=== PATIENT | female | born 1985 | race Two or more races ===

== ENCOUNTER 2019-05-04 13:59 | Emergency (ER) | payer SELFPAY ==
[~2019-05-04] VITALS: Ht 152.4 cm; Wt 63.5 kg
[2019-05-04 14:02] VITALS: Ht 152.4 cm; Wt 63.5 kg
[2019-05-04 14:46] LABS: BASOPHIL % 0.3 % (0-2); PLATELET COUNT 156 x10^3mcL (130-400); RED CELL DISTRIBUTION WIDTH 13.2 % (11.5-14.5)
[2019-05-04 15:10] LABS: CALCIUM 8.6 mg/dL (8.5-10.1); CARBON DIOXIDE 25.8 mmol/L (21-32); CHLORIDE SERUM 105 mmol/L (98-107); CREATININE SERUM 0.7 mg/dL (0.6-1.0); GFR1 > 60 mL/min; GLUCOSE SERUM 81 mg/dL (74-106); POTASSIUM SERUM 3.8 mmol/L (3.5-5.1); SODIUM SERUM 140 mmol/L (136-145)
[2019-05-04 15:16] LABS: ALBUMIN 3.9 g/dL (3.4-5.0); ALKALINE PHOSPHATASE 85 U/L (46-116); ALT/SGPT 50 U/L (14-59); AST/SGOT 30 U/L (15-37); BILIRUBIN TOTAL 0.3 mg/dL (0.20-1.00); TOTAL PROTEIN, SERUM 7.7 g/dL (6.4-8.2)
[2019-05-04 15:34] VITALS: BP 111/76
== END 2019-05-04 16:47 | disposition home or self-care (01) ==
LOC: ED 13:59
PROVIDERS: Emergency Medicine
DX: R07.89 Other chest pain (principal); R06.02 Shortness of breath; R11.0 Nausea; R20.2 Paresthesia of skin
CPT/HCPCS: 36415; 85378; J1885; Q0092

== ENCOUNTER 2019-08-06 17:16 | Emergency (ER) | payer SELFPAY ==
[~2019-08-06] VITALS: Ht 149.9 cm; Wt 64.0 kg
[2019-08-06 17:37] VITALS: BP 101/57; Ht 149.9 cm; Wt 64.0 kg
== END 2019-08-06 18:29 | disposition left against medical advice (07) ==
LOC: ED 17:16
DX: R20.2 Paresthesia of skin (principal)